=== PATIENT | female | born 1945 | race American Indian/Alaskan Native ===

== ENCOUNTER 2020-07-26 11:13 | Day surgery (SDC) | payer MEDICARE, OTHER ==
[2020-07-26] MEDS ORDERED: SODIUM CHLORIDE 0.9% 500 ML 500 ML IV SCH (12:00)
[2020-07-26 12:05] LABS: Hematocrit 35.6 % (30.3-42.9); Mean Corpuscular HGB Conc 34 % (30-34); Mean Corpuscular Volume 96 fl (79-97); Platelet Count 147 K/mm3 (140-440); Red Cell Distribution Width 16.2 % (13.2-15.2)
[2020-07-26 12:26] LABS: Calcium 9.1 mg/dL (8.4-10.2)
[2020-07-26 12:27] LABS: INR 0.98 (0.87-1.13)
[2020-07-26] MEDS ORDERED: LIDOCAINE (2%) 20 MG/1 ML VIAL 20 ML MDV INFILTRATI ONE (13:43)
[2020-07-26] MEDS ORDERED: HEPARIN/NS 5000 UNIT/500ML 1,000 ML IR ONE ×2 (13:43→14:40)
[2020-07-26] MEDS: MIDAZOLAM 2 MG/2 ML INJ ONE ×6 (14:11→16:21)
[2020-07-26] MEDS: fentaNYL 100 MCG/2 ML INJ ONE ×6 (14:11→16:21)
[2020-07-26] MEDS ORDERED: VERAPAMIL 5 MG/2 ML INJ ONE (14:26)
[2020-07-26] MEDS ORDERED: NITROGLYCERIN DRIP 0 MG/0 ML BOTTLE ONE (14:26)
[2020-07-26] MEDS ORDERED: SODIUM CHLORIDE 0.9% 1000 ML 1,000 ML ONE (14:26)
[2020-07-26] MEDS: HEPARIN 10,000 UNITS/10 ML VIAL ONE ×3 (14:51→16:22)
[2020-07-26] MEDS ORDERED: NITROGLYCERIN SYRINGE 6 ML ONE (16:06)
[2020-07-26] MEDS ORDERED: ceFAZolin/Water 2 GM/20 ML 2 GM/20 ML SYRINGE IV ONE (16:09)
--- NOTE | 2020-07-26 16:43 | Short Stay Summary ---
Short Stay Documentation Date of service: 07/26/20 Narrative H&P: See H&P - History H&P: obtained from office - Allergies and Medications Current Medications: Allergies No Known Allergies Allergy (Unverified 07/26/20 11:15) Home Medications Medication Instructions Recorded Confirmed Last Taken Type Clopidogrel [Plavix] 75 mg PO QDAY 07/26/20 07/26/20 07/25/20 History 75 mg Gabapentin [Neurontin] 300 mg PO Q8HR 07/26/20 07/26/20 07/25/20 History 3 tabs Lenalidomide [Revlimid] 25 cap PO DAILY 07/26/20 07/26/20 07/25/20 History 25 mg Rivaroxaban [Xarelto] 2.5 mg PO BID 07/26/20 07/26/20 07/25/20 History 2 tabs Semaglutide [Rybelsus] 7 mg PO DAILY 07/26/20 07/26/20 07/25/20 History 7 mg Simvastatin 40 mg PO DAILY 07/26/20 07/26/20 07/25/20 History 40 mg Active Medications Sodium Chloride (Nacl 0.9% 500 Ml) 500 mls @ 50 mls/hr IV DIRECT RAFAEL Last Admin: 07/26/20 14:11 Dose: 100 mls Documented by: - Brief post op/procedure progress note Date of procedure: 07/26/20 Pre-op diagnosis: Peripheral Vascular Disease with Right Lower Extremity Rest P ain Post-op diagnosis: same Procedure: 1. Ultrasound-Guided Access Left Common Femoral Artery 2. Diagnostic Aortogram (The Patient Had a Clinical Change) 3. Diagnostic Right Lower Extremity Angiogram (The Patient Had a Clinical Change) 4. Atherectomy with Angioplasty Of Right SFA and Popliteal Artery with 2.4/3.4 Jetstream Atherectomy Catheter and 5.0 x 200 Angiosculpt Balloon/5.0 x 250 IN.PACT Drug-Coated Balloon In the Popliteal Artery, and 6.0 x 200 Angiosculpt Balloon/6.0 x 150 IN.PACT Drug-Coated Balloon in the SFA 5. Angioplasty of Right Peroneal Artery with 3.0-2.5 x 210 NanoCross Balloon and 4.0 x 200 IN.PACT Drug-Coated Balloon 6. Closure of Left Femoral Arteriotomy with Pro-[place] Closure Device 7. Radiologic Supervision with Interpretation 8. Monitored Moderate Sedation (Total Anesthesia Time: 72 Minutes) Anesthesia: local, other (Monitored Moderate Sedation) Surgeon: EDWARD GE Estimated blood loss: minimal Pathology: none Condition: stable - Disposition Condition at discharge: Good Disposition: [id number] TO HOME OR SELFCARE Short Stay Discharge Plan Activity: other (No strenuous activity for 24 hours) Wound: remove dressing (Okay to remove the dressing in 24 hours), other (Okay to shower in 24-hour however do not soak the wound in water for 1 week.) Follow up with: EDWARD GE MD [Staff Physician] - 14 Days Prescriptions: Apixaban [Eliquis] 2.5 mg PO BID #180 tablet Aspirin EC [Halfprin EC] 81 mg PO QDAY #90 tablet. cilostazoL [Pletal] 100 mg PO BID #180 tablet Pantoprazole [Protonix] 40 mg PO QDAY #90 tablet
--- NOTE | 2020-07-26 16:51 | Operative Report ---
Operative Report Operative Report: Date of Procedure: 07/26/2020 Pre-operative Diagnosis: Peripheral Vascular Disease with Right Lower Extremity Rest Pain Post-operative Diagnosis: Same Procedure(s): 1. Ultrasound-Guided Access Left Common Femoral Artery 2. Diagnostic Aortogram (The Patient Had a Clinical Change) 3. Diagnostic Right Lower Extremity Angiogram (The Patient Had a Clinical Change) 4. Atherectomy with Angioplasty of Right SFA and Popliteal Artery with 2.4/3.4 Jetstream Atherectomy Catheter and 5.0 x 200 Angiosculpt Balloon/5.0 x 250 IN.PACT Drug-Coated Balloon In the Popliteal Artery, and 6.0 x 200 Angiosculpt Balloon/6.0 x 150 IN.PACT Drug-Coated Balloon in the SFA 5. Angioplasty of Right Peroneal Artery with 3.0-2.5 x 210 NanoCross Balloon and 4.0 x 200 IN.PACT Drug-Coated Balloon 6. Closure of Left Femoral Arteriotomy with Pro-[place] Closure Device 7. Radiologic Supervision with Interpretation 8. Monitored Moderate Sedation (Total Anesthesia Time: 72 Minutes) Surgeon: Hong Arita M.D. Farmworker Cranberry: Giovanni Anesthesia: Local/Monitored Moderate Sedation Total Anesthesia Time: 72 Minutes EBL: Minimal Counts: Correct Complications: None Condition: Stable Specimen: None Indication: The patient is a 75-year-old female with a history of peripheral vascular disease who has had multiple interventions performed on her right lower extremity and presented to the office with complaints of rest pain that have been occurring for approximately 1 week. Her ultrasound demonstrated diminished flow in the tibial vessels with likely associated occlusive disease in the femoral-popliteal segments. She was set up for a diagnostic angiogram with possible intervention. She was given the risk, benefits, and alternative procedures and consented to the procedure. Angiographic Findings: The diagnostic aortogram revealed that the aorta was patent without evidence of aneurysmal dilatation or flow-limiting stenosis. Bilateral common iliac arteries were patent without evidence of aneurysmal dilatation or flow-limiting stenosis. The diagnostic right lower extremity angiogram revealed that the external iliac artery and hypogastric artery were patent without evidence of flow-limiting stenosis. The common femoral artery and profunda were patent without evidence of flow-limiting stenosis. The SFA was diffusely diseased with approximately 70% stenosis in the proximal SFA and diffuse stenosis with segmental occlusions throughout the mid and distal SFA. The proximal popliteal artery has several stenotic areas ranging from 50 to 75% with multiple segments of occlusion in the above-knee segment and complete occlusion of the below-knee segment. The anterior tibial artery as well as the dorsalis pedis artery were occluded throughout their course. There was no reconstitution of flow noted within the peroneal artery and the posterior tibial artery was occluded at its origin and filled in the mid calf through collaterals from the floating popliteal artery segments. After intervention the SFA and popliteal artery were both patent with less than 15% residual stenosis. The tibioperoneal trunk was patent with less than 15% residual stenosis. The peroneal artery was patent with approximately 20% residual stenosis in the proximal segment and less than 15% residual stenosis throughout the remainder of the artery. The peroneal artery provided collateral flow to the posterior tibial artery at the ankle which is the dominant artery into the foot. Description of Procedure: The patient was brought to the Power Supply Engineer and laid in supine position. After a timeout was performed her left groin was prepped and draped in normal sterile fashion. Ultrasound was used to identify the left common femoral artery and confirm patency. Once patency was confirmed the overlying skin and soft tissue was anesthetized with lidocaine. An 11 blade was used to make a small stab incision and then a curved hemostat was used with ultrasound guidance to bluntly dissect down to the anterior surface of the left common femoral artery. A 21- gauge micropuncture needle was used with ultrasound guidance to enter the left common femoral artery and a 0.018 micropuncture wire was advanced into the artery. The micropuncture needle was removed and a micropuncture sheath was placed by Seldinger technique. The wire and inner cannula were removed and a 0.035 Bentson wire was advanced to the aorta. The micropuncture catheter was then removed and a 5 [place] sheath was placed by Seldinger technique. An Omni Flush catheter was advanced into the aorta and after removing the Bentson wire a diagnostic aortogram was performed to previously described findings. The Bentson wire was reinserted and the wire and Omni Flush catheter were used to advance up and over the bifurcation and a right lower extremity angiogram was performed with the previously described findings. The Bentson wire was advanced into the mid SFA and after removing the 5 Gambian sheath a 7 Gambian 45 cm destination sheath was placed by Seldinger technique. At this point the patient was systemically heparinized with 5000 units of heparin IV and this was redosed with 1000 units of heparin IV every 45 minutes into the completion of the case. I then used a Navicross catheter and 0.018 V18 Wire to traverse the areas of stenosis and occlusions and reenter into the peroneal artery which was confirmed by angiogram. I then inserted a 0.014 Thruway Wire and performed atherectomy of the SFA and popliteal artery using a 2.4/3.4 Jetstream Atherectomy Catheter with both blades down and blades up. After performing atherectomy I performed angioplasty of the entire popliteal artery using a 5.0 x 200 Angiosculpt Balloon in the SFA using a 6.0 x 200 Angiosculpt Balloon. I then performed angioplasty of the popliteal artery using a 5.0 x 250 IN.PACT Drug-Coated Balloon followed by angioplasty of the SFA using two 6.0 x 150 IN.PACT Drug-Coated Balloons with a result of less than 15% residual stenosis throughout both arteries. I follow this with angioplasty of the peroneal artery with a 3.0-2.5 x 210 NanoCross Balloon and follow this with angioplasty of the artery with a 4.0 x 200 IN.PACT Drug-Coated Balloon resulted in a short segment with a residual of 20% stenosis however the remainder of the artery had less than 15% residual stenosis. At this point I exchanged the wire for a Bentson wire and then pulled the sheath back into the left external iliac artery. I then advanced the wire into the aorta and after removing the sheath used a Pro-glide closure device to close the left femoral arteriotomy. A sterile dressing was then applied to the entry site and the patient was transported to the recovery area in stable condition.
[2020-07-26] MEDS ORDERED: APIXABAN 5 MG TAB ONE (17:22)
[2020-07-26 17:47] VITALS: BP 169/67
[2020-07-26] MEDS ORDERED: APIXABAN 2.5 MG TAB PO ONE (17:51)
== END 2020-07-26 11:14 | disposition home or self-care (01) ==
LOC: CATHLABREC 11:13
PROVIDERS: ATTEND Surgery Vascular Surgery
DX: I70.221 Atherosclerosis of native arteries of extremities with rest pain, right leg (principal); E11.42 Type 2 diabetes mellitus with diabetic polyneuropathy; E11.65 Type 2 diabetes mellitus with hyperglycemia; Z79.899 Other long term (current) drug therapy; Z79.82 Long term (current) use of aspirin; Z98.890 Other specified postprocedural states; Z85.3 Personal history of malignant neoplasm of breast; Z83.3 Family history of diabetes mellitus; Z82.49 Family history of ischemic heart disease and other diseases of the circulatory system
CPT/HCPCS: 36415; 37225; 37228; 75625; 75710; 76937; 80048; 85027; 85610; 99156; 99157; C1724; C1725; C1760; C1769; C1887; C2623; J0690; J1644; J2250; J3010; J7030; J7040; Q9967

== ENCOUNTER 2021-04-14 13:32 | Inpatient (IN) | payer MEDICARE, OTHER ==
[2021-04-14 15:55] LABS: Basophils % (Auto) 1.1 % (0.0-1.8); Eosinophils # (Auto) 0.2 K/mm3 (0.0-0.4); Eosinophils % (Auto) 6.9 % (0.0-4.3); Hemoglobin 12.3 gm/dl (10.1-14.3); Lymphocytes # (Auto) 1.2 K/mm3 (1.2-5.4); Lymphocytes % (Auto) 44.7 % (13.4-35.0); Mean Corpuscular HGB Conc 33 % (30-34); Mean Corpuscular Volume 96 fl (79-97); Monocytes # (Auto) 0.3 K/mm3 (0.0-0.8); Monocytes % (Auto) 12.3 % (0.0-7.3); Platelet Count 174 K/mm3 (140-440); Red Blood Count 3.86 M/mm3 (3.65-5.03); Red Cell Distribution Width 17.7 % (13.2-15.2)
[2021-04-14 16:03] LABS: INR 0.94 (0.87-1.13)
[2021-04-14 16:16] LABS: Alanine Aminotransferase 18 units/L (7-56); BUN/Creatinine Ratio 8; Blood Urea Nitrogen 8 mg/dL (7-17); Calcium 9.6 mg/dL (8.4-10.2); Hemolysis Index 5
--- NOTE | 2021-04-14 17:11 | Consultation ---
History of Present Illness - Reason for Consult Consult date: 04/14/21 Right leg pain - History of Present Illness Patient with a history of peripheral vascular disease who is undergone multiple repeat revascularization procedures of her right leg most recently at this institution on 07/26/2020. At that time, the patient was placed on anticoagulation secondary to recurrent thrombotic arterial events. Per patient, she is stopped taking all of her anticoagulation except her Eliquis which she takes only 1 time a day. I the patient began to experience right leg pain that has worsened since Saturday. She presented to an outside physician and underwent an arterial duplex which demonstrates occlusion of the distal SFA with preserved posterior tibial flow. On examination, the patient's leg is swollen. Motor and sensation are intact. She does not appear to be in severe pain. The foot is mildly cooler than her left foot. I the patient states that she has not been hanging her leg off the bed rather she has been elevating her leg to decrease the swelling. Spoke with the outside physician regarding her ultrasound who confirmed that she had SFA occlusion. Past History Past Medical History: PVD Past Surgical History: Other (Multiple endovascular procedures involving her right leg) Medications and Allergies Allergies Allergy/AdvReac Type Severity Reaction Status Date / Time No Known Allergies Allergy Unverified 04/14/21 13:46 Home Medications Medication Instructions Recorded Confirmed Last Taken Type Apixaban [Eliquis] 2.5 mg PO BID #180 tablet 07/26/20 Unknown Rx Aspirin EC [Halfprin EC] 81 mg PO QDAY #90 tablet. 07/26/20 Unknown Rx Gabapentin 300 mg PO Q8HR 07/26/20 07/26/20 07/25/20 History 3 tabs Lenalidomide [Revlimid] 25 cap PO DAILY 07/26/20 07/26/20 07/25/20 History 25 mg Pantoprazole [Protonix] 40 mg PO QDAY #90 tablet 07/26/20 Unknown Rx Semaglutide [Rybelsus] 7 mg PO DAILY 07/26/20 07/26/20 07/25/20 History 7 mg Simvastatin 40 mg PO DAILY 07/26/20 07/26/20 07/25/20 History 40 mg cilostazoL [Pletal] 100 mg PO BID #180 tablet 07/26/20 Unknown Rx Active Meds: Active Medications Heparin Sodium/Sodium Chloride (Heparin/ 0.45% Nacl-25,000 Unit/500 Ml) 25,000 unit in 500 mls @ 22.099 mls/hr IV TITR RAFAEL; Protocol Review of Systems All systems: negative Exam - Constitutional Vitals: Temp Pulse Resp BP Pulse Ox 98.3 F 58 L 18 133/66 99 04/14/21 13:44 04/14/21 13:44 04/14/21 13:44 04/14/21 13:44 04/14/21 13:44 General appearance: Present: no acute distress - EENT Eyes: Present: EOM intact ENT: hearing intact - Neck Neck: Present: supple, normal ROM - Respiratory Respiratory effort: normal - Extremities Extremities: abnormal (Per HPI) - Rectal Rectal Exam: deferred - Psychiatric Psychiatric: cooperative Results - Labs CBC & Chem 7: 04/14/21 15:01 04/14/21 15:01 Labs: Abnormal lab results 04/14/21 Range/Units 15:01 WBC 2.8 L (4.5-11.0) K/mm3 RDW 17.7 H (13.2-15.2) % Lymph % (Auto) 44.7 H (13.4-35.0) % [place] % (Auto) 12.3 H (0.0-7.3) % Eos % (Auto) 6.9 H (0.0-4.3) % Seg Neutrophils % 35.0 L (40.0-70.0) % Seg Neutrophils # 1.0 L (1.8-7.7) K/mm3 Assessment and Plan Venous ultrasound was ordered by the ER physician. Discussed with the trade economist to add a greater saphenous vein mapping at that time as the patient may require a fem-tib bypass with in situ greater saphenous vein given her inability to maintain the patency of her [place] arterial vessels despite repeated interventions. A CTA of the abdomen and pelvis with runoff was also ordered. The patient was placed on a heparin drip. The patient appears to have rest pain.
--- NOTE | 2021-04-14 17:34 | Emergency Department Report ---
ED General Adult HPI - General Chief complaint: Medical Clearance Stated complaint: BLOOD CLOT RT LEG Time Seen by Provider: 04/14/21 14:42 Source: patient Mode of arrival: Ambulatory Limitations: No Limitations - History of Present Illness Initial comments: pt reports she was sent from her primary care, for blood clot in right lower leg. obvious reddness and pain -: days(s) Location: lower extremity Radiation: non-radiation Severity scale (0 -10): 5 Quality: aching Worsens with: none Associated Symptoms: denies other symptoms - Related Data Home Medications Medication Instructions Recorded Confirmed Last Taken Gabapentin 300 mg PO Q8HR 07/26/20 07/26/20 07/25/20 3 tabs Lenalidomide [Revlimid] 25 cap PO DAILY 07/26/20 07/26/20 07/25/20 25 mg Semaglutide [Rybelsus] 7 mg PO DAILY 07/26/20 07/26/20 07/25/20 7 mg Simvastatin 40 mg PO DAILY 07/26/20 07/26/20 07/25/20 40 mg Previous Rx's Medication Instructions Recorded Last Taken Type Apixaban [Eliquis] 2.5 mg PO BID #180 tablet 07/26/20 Unknown Rx Aspirin EC [Halfprin EC] 81 mg PO QDAY #90 tablet. 07/26/20 Unknown Rx Pantoprazole [Protonix] 40 mg PO QDAY #90 tablet 07/26/20 Unknown Rx cilostazoL [Pletal] 100 mg PO BID #180 tablet 07/26/20 Unknown Rx Allergies Allergy/AdvReac Type Severity Reaction Status Date / Time No Known Allergies Allergy Unverified 04/14/21 13:46 ED Review of Systems ROS: Stated complaint: BLOOD CLOT RT LEG Other details as noted in HPI Constitutional: denies: chills, fever Eyes: denies: eye pain, eye discharge, vision change ENT: denies: ear pain, throat pain Respiratory: denies: cough, shortness of breath, wheezing Cardiovascular: denies: chest pain, palpitations Endocrine: no symptoms reported Gastrointestinal: denies: abdominal pain, nausea, diarrhea Genitourinary: denies: urgency, dysuria, discharge Musculoskeletal: denies: back pain, joint swelling, arthralgia Skin: denies: rash, lesions Neurological: denies: headache, weakness, paresthesias Psychiatric: denies: anxiety, depression Hematological/Lymphatic: denies: easy bleeding, easy bruising ED Past Medical Hx - Past Medical History Previous Medical History?: Yes Hx Diabetes: Yes Hx Liver Disease: No - Social History Smoking Status: Never Smoker - Medications Home Medications: Home Medications Medication Instructions Recorded Confirmed Last Taken Type Apixaban [Eliquis] 2.5 mg PO BID #180 tablet 07/26/20 Unknown Rx Aspirin EC [Halfprin EC] 81 mg PO QDAY #90 tablet. 07/26/20 Unknown Rx Gabapentin 300 mg PO Q8HR 07/26/20 07/26/20 07/25/20 History 3 tabs Lenalidomide [Revlimid] 25 cap PO DAILY 07/26/20 07/26/20 07/25/20 History 25 mg Pantoprazole [Protonix] 40 mg PO QDAY #90 tablet 07/26/20 Unknown Rx Semaglutide [Rybelsus] 7 mg PO DAILY 07/26/20 07/26/20 07/25/20 History 7 mg Simvastatin 40 mg PO DAILY 07/26/20 07/26/20 07/25/20 History 40 mg cilostazoL [Pletal] 100 mg PO BID #180 tablet 07/26/20 Unknown Rx ED Physical Exam - General Limitations: No Limitations General appearance: alert, in no apparent distress - Head Head exam: Present: atraumatic, normocephalic - Eye Eye exam: Present: normal appearance - ENT ENT exam: Present: mucous membranes moist - Neck Neck exam: Present: normal inspection - Respiratory Respiratory exam: Present: normal lung sounds bilaterally. Absent: respiratory distress - Cardiovascular Cardiovascular Exam: Present: regular rate, normal rhythm. Absent: systolic murmur, diastolic murmur, rubs, gallop - GI/Abdominal GI/Abdominal exam: Present: soft, normal bowel sounds - Extremities Exam Extremities exam: Present: normal inspection - Expanded Lower Extremity Exam Right Lower Leg exam: Present: tenderness, swelling, erythema - Back Exam Back exam: Present: normal inspection - Neurological Exam Neurological exam: Present: alert, oriented X3 - Psychiatric Psychiatric exam: Present: normal affect, normal mood - Skin Skin exam: Present: warm, dry, intact, normal color. Absent: rash ED Course Vital Signs 04/14/21 13:44 Temperature 98.3 F Pulse Rate 58 L Respiratory 18 Rate Blood Pressure 133/66 O2 Sat by Pulse 99 Oximetry - Reevaluation(s) Reevaluation #1: 04/14/21 17:33 DR naina dotson , wanted her to be admitted to medicine , he started her on hep drip for Right SFA occlusion ED Medical Decision Making - Lab Data Result diagrams: 04/14/21 15:01 04/14/21 15:01 Critical care attestation.: If time is entered above; I have spent that time in minutes in the direct care of this critically ill patient, excluding procedure time. ED Disposition Clinical Impression: Ischemia of right lower extremity Disposition: ADMITTED INPATIENT Is pt being admited?: Yes Does the pt Need Aspirin: No Condition: Stable Referrals: PRIMARY CARE, [Primary Care Provider] - 3-5 Days
--- NOTE | 2021-04-14 17:47 | Event Note ---
Date: 04/14/21 Reviewed CTA images with shearer helper in real-time while patient was in the room and examination being performed. The patient has no DVT. The patient does have preserved tibial arterial flow in both the posterior tibial artery and peroneal as well as preserved popliteal artery flow. There appears to be chronic possibly subacute occlusion of her distal SFA with collateral flow. Patient will need CTA for further delineation and to evaluate treatment options. Her greater saphenous vein appears to be patent from its origin to below the knee. Patient not in any significant pain or discomfort.
--- NOTE | 2021-04-14 19:07 | Cat Scan Report ---
CTA ABDOMEN, PELVIS, AND LOWER EXTREMITIES WITH CONTRAST INDICATION: SFA occlusion. TECHNIQUE: Axial CT images were obtained through the abdomen, pelvis and lower extremities after injection of 10 0 cc Omnipaque 350 IV contrast. 3 plane MIP reconstructions were produced. All CT scans at this [facility] are performed using CT dose reduction for ALARA by means of automated exposure control. COMPARISON: None available. FINDINGS: CTA ABDOMEN: Abdominal Aorta: There is moderate generalized nonobstructive atherosclerosis. No other significant a bnormality. Celiac Artery: No significant abnormality. Superior Mesenteric Artery: No significant abnormality. Right Renal Artery: No significant abnormality. Left Renal Artery: No significant abnormality. Inferior Mesenteric Artery: No significant abnormality. CTA PELVIS: RIGHT: - Common Iliac Artery: There is mild nonobstructive atherosclerosis without other significant abnorma lities. - Internal Iliac Artery: There is mild nonobstructive atherosclerosis without other significant abnor malities. - External Iliac Artery: No significant abnormality. LEFT: - Common Iliac Artery: There is mild nonobstructive atherosclerosis without other significant abnorma lities. - Internal Iliac Artery: There is mild nonobstructive atherosclerosis without other significant abnor malities. - External Iliac Artery: No significant abnormality. CTA LOWER EXTREMITIES: RIGHT LOWER EXTREMITY: - Common Femoral Artery: No significant abnormality. - Superficial Femoral Artery: Short segment severe stenosis is seen along the proximal third of the S FA on image 400 of series 2. There is occlusion of the SFA along the distal third of the thigh withou t distal reconstitution of flow. - Profunda Femoral Artery: No significant abnormality. - Popliteal Artery: Patent and supplied by collaterals at its origin with subsequent occlusion along the middle third of its course without distal reconstitution of flow. - Anterior Tibial Artery: Occluded. - Tibioperoneal Trunk: Occluded. - Posterior Tibial Artery: Occluded at its origin with reconstitution of flow via collaterals along t he proximal/middle third of the leg. The vessel remains patent and normal in caliber to the foot. - Peroneal Artery: Mostly occluded with reconstitution of flow just above the ankle via collaterals. - Ankle runoff: Primarily 1 vessel. LEFT LOWER EXTREMITY: - Common Femoral Artery: No significant abnormality. - Superficial Femoral Artery: There is generalized mild nonobstructive atherosclerosis without other significant abnormalities. - Profunda Femoral Artery: No significant abnormality. - Popliteal Artery: There is generalized mild nonobstructive atherosclerosis without other significan t abnormalities. - Anterior Tibial Artery: Briefly patent and normal in caliber at its origin with occlusion shortly t hereafter without distal reconstitution of flow. - Tibioperoneal Trunk: No significant abnormality. - Posterior Tibial Artery: No significant abnormality. - Peroneal Artery: Mostly occluded with reconstitution of flow via collaterals just above the ankle. - Ankle runoff: Primarily 1 vessel. NONTARGET STRUCTURES: CHEST: No significant abnormality. ABDOMEN:No significant abnormality. PELVIS:No significant abnormality. LOWER EXTREMITIES:No significant abnormality. SKELETAL: No acute findings. There are moderate degenerative changes of the spine and mild degenerati ve changes of the pelvis. ADDITIONAL FINDINGS: None. IMPRESSION: 1. Moderate aortic and mild iliac atherosclerosis without significant obstruction. No other significa nt vascular abnormality in the abdomen/pelvis. 2. Severe right lower extremity peripheral vascular disease with occlusion of the superficial femoral , popliteal, anterior tibial, posterior tibial and peroneal arteries as well as the tibioperoneal alka nk. There is primarily single vessel runoff to the right foot as detailed above. 3. Severe left lower extremity peripheral vascular disease with occlusion of the anterior tibial and peroneal arteries and primarily single vessel runoff to the left foot as detailed above. Signer Name: Luis Alberto Stallworth MD Signed: 04/14/2021 7:03 PM Workstation Name: [id number]
[2021-04-14] MEDS ORDERED: ACETAMINOPHEN 325 MG TAB PO PRN (20:06)
[2021-04-14] MEDS ORDERED: ONDANSETRON 4 MG/2 ML INJ IV PRN (20:06)
--- NOTE | 2021-04-14 20:12 | History and Physical Report ---
History of Present Illness Date of examination: 04/14/21 Date of admission: 04/14/2021 Chief complaint: Right lower extremity swelling and pain History of present illness: Patient with a history of peripheral vascular disease who has undergone multiple repeat revascularization procedures of her right leg most recently at this institution on 07/26/2020. At that time, the patient was placed on anticoagulation secondary to recurrent thrombotic arterial events. Per patient, she has stopped taking all her anticoagulation meds except her Eliquis which she takes only 1 time a day. The patient began to experience right leg pain that has worsened since Saturday. She presented to an outside physician and underwent an arterial duplex which demonstrates occlusion of the distal SFA with preserved posterior tibial flow. On examination, the patient's leg is swollen. Motor and sensation are intact. She does not appear to be in severe pain. The Right foot is mildly cooler than her left foot. Patient states that she has not been hanging her leg off the bed rather she has been elevating her leg to decrease the swelling. Dr Verm[facility] who confirmed that she had SFA occlusion. - Past Medical History --Previous Medical History?: Yes --Diabetes: Yes --Liver Disease: No -Surgical history --multiple right lower extremity revascularization procedures - Social History --Smoking Status: Never Smoker - Family history --HTN -Review of Systems --ROS: Stated complaint: BLOOD CLOT RT LEG Other details as noted in HPI Constitutional: denies: chills, fever Eyes: denies: eye pain, eye discharge, vision change ENT: denies: ear pain, throat pain Respiratory: denies: cough, shortness of breath, wheezing Cardiovascular: denies: chest pain, palpitations Endocrine: no symptoms reported Gastrointestinal: denies: abdominal pain, nausea, diarrhea Genitourinary: denies: urgency, dysuria, discharge Musculoskeletal: Right lower extremity swollen and tender below the inguinal region Skin: denies: rash, lesions Neurological: denies: headache, weakness, paresthesias Psychiatric: denies: anxiety, depression Hematological/Lymphatic: denies: easy bleeding, easy bruising Past History Past Medical History: PVD Past Surgical History: Other (Multiple endovascular procedures involving her right leg) Medications and Allergies Allergies Allergy/AdvReac Type Severity Reaction Status Date / Time No Known Allergies Allergy Unverified 04/14/21 13:46 Home Medications Medication Instructions Recorded Confirmed Last Taken Type Apixaban [Eliquis] 2.5 mg PO BID #180 tablet 07/26/20 Unknown Rx Pantoprazole [Protonix] 40 mg PO QDAY #90 tablet 07/26/20 Unknown Rx RX: Aspirin EC [Halfprin EC] 81 mg PO QDAY #90 tablet. 07/26/20 Unknown Rx RX: Gabapentin 300 mg PO Q8HR 07/26/20 07/26/20 07/25/20 History 3 tabs RX: Lenalidomide [Revlimid] 25 cap PO DAILY 07/26/20 07/26/20 07/25/20 History 25 mg RX: Semaglutide [Rybelsus] 7 mg PO DAILY 07/26/20 07/26/20 07/25/20 History 7 mg RX: Simvastatin 40 mg PO DAILY 07/26/20 07/26/20 07/25/20 History 40 mg cilostazoL [Pletal] 100 mg PO BID #180 tablet 07/26/20 Unknown Rx Active Meds: Active Medications Heparin Sodium/Sodium Chloride (Heparin/ 0.45% Nacl-25,000 Unit/500 Ml) 25,000 unit in 500 mls @ 21 mls/hr IV TITR RAFAEL; Protocol Exam - Constitutional Vitals: Temp Pulse Resp BP Pulse Ox 98.3 F 58 L 14 134/57 96 04/14/21 13:44 04/14/21 18:02 04/14/21 18:02 04/14/21 18:02 04/14/21 18:02 General appearance: Present: mild distress, well-nourished - EENT Eyes: Present: PERRL ENT: hearing intact, clear oral mucosa - Neck Neck: Present: supple, normal ROM - Respiratory Respiratory effort: normal Respiratory: bilateral: CTA - Cardiovascular Heart rate: 78 Rhythm: regular Heart Sounds: Present: S1 & S2. Absent: rub, click - Extremities Extremities: No edema, abnormal (Right lower extremity swollen below the inguinal region and tender. Also right foot is cold to touch) Extremity abnormal: pulses diminished (Right lower extremity) Peripheral Pulses: abnormal - Abdominal General gastrointestinal: Present: soft, non-tender, non-distended, normal bowel sounds Female genitourinary: Present: normal - Rectal Rectal Exam: deferred - Integumentary Integumentary: Present: clear, warm, dry - Musculoskeletal Musculoskeletal: gait normal, strength equal bilaterally - Psychiatric Psychiatric: appropriate mood/affect, intact judgment & insight - Neurologic Neurologic: CNII-XII intact, moves all extremities - Allied Health Allied health notes reviewed: nursing, case management Results - Labs CBC & Chem 7: 04/15/21 04:48 04/15/21 04:48 Labs: Laboratory Last Values WBC 2.8 K/mm3 (4.5-11.0) L 04/14/21 15:01 RBC 3.86 M/mm3 (3.65-5.03) 04/14/21 15:01 Hgb 12.3 gm/dl (10.1-14.3) 04/14/21 15:01 Hct 37.0 % (30.3-42.9) 04/14/21 15:01 MCV 96 fl (79-97) 04/14/21 15:01 MCH 32 pg (28-32) 04/14/21 15:01 MCHC 33 % (30-34) 04/14/21 15:01 RDW 17.7 % (13.2-15.2) H 04/14/21 15:01 Plt Count 174 K/mm3 (140-440) 04/14/21 15:01 Lymph % (Auto) 44.7 % (13.4-35.0) H 04/14/21 15:01 [place] % (Auto) 12.3 % (0.0-7.3) H 04/14/21 15:01 Eos % (Auto) 6.9 % (0.0-4.3) H 04/14/21 15:01 Baso % (Auto) 1.1 % (0.0-1.8) 04/14/21 15:01 Lymph # (Auto) 1.2 K/mm3 (1.2-5.4) 04/14/21 15:01 [place] # (Auto) 0.3 K/mm3 (0.0-0.8) 04/14/21 15:01 Eos # (Auto) 0.2 K/mm3 (0.0-0.4) 04/14/21 15:01 Baso # (Auto) 0.0 K/mm3 (0.0-0.1) 04/14/21 15:01 Seg Neutrophils % 35.0 % (40.0-70.0) L 04/14/21 15:01 Seg Neutrophils # 1.0 K/mm3 (1.8-7.7) L 04/14/21 15:01 PT 13.6 Sec. (12.2-14.9) 04/14/21 15:01 INR 0.94 (0.87-1.13) 04/14/21 15:01 APTT 30.0 Sec. (24.2-36.6) 04/14/21 15:01 Sodium 144 mmol/L (137-145) 04/14/21 15:01 Potassium 4.2 mmol/L (3.6-5.0) 04/14/21 15:01 Chloride 106.6 mmol/L (98-107) 04/14/21 15:01 Carbon Dioxide 26 mmol/L (22-30) 04/14/21 15:01 Anion Gap 16 mmol/L 04/14/21 15:01 BUN 8 mg/dL (7-17) 04/14/21 15:01 Creatinine 1.0 mg/dL (0.6-1.2) 04/14/21 15:01 Estimated GFR > 60 ml/min 04/14/21 15:01 BUN/Creatinine Ratio 8 % 04/14/21 15:01 Glucose 82 mg/dL (65-100) 04/14/21 15:01 Calcium 9.6 mg/dL (8.4-10.2) 04/14/21 15:01 Total Bilirubin 0.30 mg/dL (0.1-1.2) 04/14/21 15:01 AST 16 units/L (5-40) 04/14/21 15:01 ALT 18 units/L (7-56) 04/14/21 15:01 Alkaline Phosphatase 77 units/L (35-129) 04/14/21 15:01 C-Reactive Protein 0.10 mg/dL (0.00-1.30) 04/14/21 15:01 Total Protein 6.9 g/dL (6.3-8.2) 04/14/21 15:01 Albumin 4.0 g/dL (3.9-5) 04/14/21 15:01 Albumin/Globulin Ratio 1.4 % 04/14/21 15:01 - Imaging and Cardiology Imaging and Cardiology: Abdomen CTA Moderate aortic and mild iliac atherosclerosis without significant obstruction No other significant vascular abnormality in the abdomen/pelvis Severe right lower extremity peripheral vascular disease with occlusion of the superficial femoral, popliteal, anterior tibial, posterior tibial and peroneal arteries as well as the tibioperoneal trunk. There is family single-vessel runoff to the right foot as detailed above. Severe left lower extremity peripheral vascular disease with occlusion of the anterior tibial and peroneal arteries and primarily single-vessel runoff of the left foot as detailed above. Assessment and Plan Advance Directives: Yes (Full code) VTE prophylaxis?: Chemical Plan of care discussed with patient/family: Yes - Patient Problems (1) Ischemia of right lower extremity Current Visit: Yes Status: Acute Plan to address problem: Patient seen by Dr. 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 Continue statins (6) DVT prophylaxis Current Visit: Yes Status: Acute Plan to address problem: Patient on heparin drip and GI prophylaxis (7) Advance care planning Current Visit: Yes Status: Acute (8) Advance care planning Current Visit: Yes Status: Acute Plan to address problem: Disease education conducted, care plan discussed, diagnosis discussed, prognosis discussed. Patient is full code. Patient acknowledges understanding and agreement with care plan.
[2021-04-14] MEDS ORDERED: SODIUM CHLORIDE 0.9% 1000 ML 1,000 ML IV SCH (20:15)
[2021-04-14] MEDS: HEPARIN/ 0.45% NACL DRIP 25,000 UNIT/500 ML BAG IV SCH (22:47)
[2021-04-15] MEDS: oxyCODONE /ACETAMINOPHEN 5-325MG TAB PO PRN ×2 (00:35→06:11)
[2021-04-15 05:40] LABS: Hematocrit 34.2 % (30.3-42.9); Mean Corpuscular HGB Conc 32 % (30-34); Mean Corpuscular Volume 97 fl (79-97); Platelet Count 138 K/mm3 (140-440); Red Blood Count 3.54 M/mm3 (3.65-5.03); Red Cell Distribution Width 17.6 % (13.2-15.2)
[2021-04-15 05:43] LABS: Alanine Aminotransferase 15 units/L (7-56); Albumin 3.3 g/dL (3.9-5); BUN/Creatinine Ratio 9; Blood Urea Nitrogen 9 mg/dL (7-17); Calcium 8.3 mg/dL (8.4-10.2); Hemolysis Index 2
[2021-04-15 06:50] LABS: Basophils % (Manual) 0 % (0.0-1.8); Total Cells Counted 100
[2021-04-15 06:51] LABS: Anisocytosis 1+; Ovalocytes Few; Platelet Estimate Consistent w Auto; Poikilocytosis 1+; Schistocytes Rare; Tear Drop Cells Rare
--- NOTE | 2021-04-15 09:10 | Progress Note ---
Assessment and Plan Assessment and plan: #Right lower extremity ischemia CT angio abdominal/femoral aorta (04/14/2021) revealing right popliteal artery is patent and supplied by collaterals at its origin with subsequent occlusion along the middle third of its course without distal reconstitution of flow, occl uded right anterior tibial artery, occluded right tibioperoneal trunk, occluded right posterior tibial artery at its origin with reconstitution of flow via collaterals along the proximal/middle third of the leg, mostly occluded right peroneal artery with reconstitution of flow just above the ankle via collaterals, mostly occluded left peroneal artery with reconstitution of flow via collaterals just above the ankle. Vascular surgery consulted; appreciate recs Pending venous ultrasound with additional greater saphenous vein mapping Pending likely revascularization of right lower extremity with possible femoral-popliteal bypass versus catheterization and angioplasty Continue heparin drip Continue to monitor #PAD #Hyperlipidemia Continue home pravastatin 80 mg daily, cilostazol 100 mg twice daily, and aspirin 81 mg daily #Non-insulin dependent type II diabetes mellitus complicated by peripheral neuropathy - hemoglobin A1c: Unknown - current regimen: Moderate SSI and home gabapentin 300 mg every 8 hours - blood glucose goal 140-180 while inpatient - continue to monitor #Advanced care planning -Disease education conducted, care plan discussed, diagnoses discussed, prognosis discussed, and patient acknowledges understanding with care plan -Time: +30 min Disposition Plan: Continue medical management Total Time Spent with Patient (Minutes): 45 minutes History Interval history: No acute events overnight. Hospitalist Physical - Constitutional Vitals: Temp Pulse Resp BP Pulse Ox 97.7 F 49 L 16 125/54 96 04/15/21 05:00 04/15/21 05:00 04/15/21 05:00 04/15/21 05:00 04/15/21 05:00 General appearance: Present: no acute distress, well-nourished - EENT Eyes: Present: PERRL, EOM intact ENT: hearing intact, clear oral mucosa, dentition normal - Neck Neck: Present: supple, normal ROM - Respiratory Respiratory effort: normal Respiratory: bilateral: CTA - Cardiovascular Rhythm: regular Heart Sounds: Present: S1 & S2 - Extremities Extremities: pulses intact, pulses symmetrical, normal color, Full ROM Extremity abnormal: cold (Right lower extremity is slightly cooler than left), tenderness (Tenderness of bilateral lower extremities from knees down to ankle) Peripheral Pulses: within normal limits - Abdominal General gastrointestinal: soft, non-tender, non-distended - Integumentary Integumentary: Present: clear, warm, dry - Psychiatric Psychiatric: appropriate mood/affect, memory intact, cooperative - Neurologic Neurologic: CNII-XII intact, moves all extremities - Allied Health Allied health notes reviewed: nursing Results - Labs CBC & Chem 7: 04/15/21 04:48 04/15/21 04:48 Labs: Laboratory Last Values WBC 2.3 K/mm3 (4.5-11.0) L 04/15/21 04:48 RBC 3.54 M/mm3 (3.65-5.03) L 04/15/21 04:48 Hgb 11.0 gm/dl (10.1-14.3) 04/15/21 04:48 Hct 34.2 % (30.3-42.9) 04/15/21 04:48 MCV 97 fl (79-97) 04/15/21 04:48 MCH 31 pg (28-32) 04/15/21 04:48 MCHC 32 % (30-34) 04/15/21 04:48 RDW 17.6 % (13.2-15.2) H 04/15/21 04:48 Plt Count 138 K/mm3 (140-440) L 04/15/21 04:48 Lymph % (Auto) 44.7 % (13.4-35.0) H 04/14/21 15:01 [place] % (Auto) 12.3 % (0.0-7.3) H 04/14/21 15:01 Eos % (Auto) 6.9 % (0.0-4.3) H 04/14/21 15:01 Baso % (Auto) 1.1 % (0.0-1.8) 04/14/21 15:01 Lymph # (Auto) 1.2 K/mm3 (1.2-5.4) 04/14/21 15:01 [place] # (Auto) 0.3 K/mm3 (0.0-0.8) 04/14/21 15:01 Eos # (Auto) 0.2 K/mm3 (0.0-0.4) 04/14/21 15:01 Baso # (Auto) 0.0 K/mm3 (0.0-0.1) 04/14/21 15:01 Add Manual Diff Complete 04/15/21 04:48 Total Counted 100 04/15/21 04:48 Seg Neutrophils % 35.0 % (40.0-70.0) L 04/14/21 15:01 Seg Neuts % (Manual) 33.0 % (40.0-70.0) L 04/15/21 04:48 Band Neutrophils % 0 % 04/15/21 04:48 Lymphocytes % (Manual) 35.0 % (13.4-35.0) 04/15/21 04:48 Reactive Lymphs % (Man) 0 % 04/15/21 04:48 Monocytes % (Manual) 14.0 % (0.0-7.3) H 04/15/21 04:48 Eosinophils % (Manual) 18.0 % (0.0-4.3) H 04/15/21 04:48 Basophils % (Manual) 0 % (0.0-1.8) 04/15/21 04:48 Metamyelocytes % 0 % 04/15/21 04:48 Myelocytes % 0 % 04/15/21 04:48 Promyelocytes % 0 % 04/15/21 04:48 Blast Cells % 0 % 04/15/21 04:48 Nucleated RBC % Not Reportable 04/15/21 04:48 Seg Neutrophils # 1.0 K/mm3 (1.8-7.7) L 04/14/21 15:01 Seg Neutrophils # Man 0.8 K/mm3 (1.8-7.7) L 04/15/21 04:48 Band Neutrophils # 0.0 K/mm3 04/15/21 04:48 Lymphocytes # (Manual) 0.8 K/mm3 (1.2-5.4) L 04/15/21 04:48 Abs React Lymphs (Man) 0.0 K/mm3 04/15/21 04:48 Monocytes # (Manual) 0.3 K/mm3 (0.0-0.8) 04/15/21 04:48 Eosinophils # (Manual) 0.4 K/mm3 (0.0-0.4) 04/15/21 04:48 Basophils # (Manual) 0.0 K/mm3 (0.0-0.1) 04/15/21 04:48 Metamyelocytes # 0.0 K/mm3 04/15/21 04:48 Myelocytes # 0.0 K/mm3 04/15/21 04:48 Promyelocytes # 0.0 K/mm3 04/15/21 04:48 Blast Cells # 0.0 K/mm3 04/15/21 04:48 WBC Morphology Not Reportable 04/15/21 04:48 Hypersegmented Neuts Not Reportable 04/15/21 04:48 Hyposegmented Neuts Not Reportable 04/15/21 04:48 Hypogranular Neuts Not Reportable 04/15/21 04:48 Smudge Cells Not Reportable 04/15/21 04:48 Toxic Granulation Not Reportable 04/15/21 04:48 Toxic Vacuolation Not Reportable 04/15/21 04:48 Dohle Bodies Not Reportable 04/15/21 04:48 Pelger-Huet Anomaly Not Reportable 04/15/21 04:48 Venus Rods Not Reportable 04/15/21 04:48 Platelet Estimate Consistent w auto 04/15/21 04:48 Clumped Platelets Not Reportable 04/15/21 04:48 Plt Clumps, EDTA Not Reportable 04/15/21 04:48 Large Platelets Not Reportable 04/15/21 04:48 Giant Platelets Not Reportable 04/15/21 04:48 Platelet Satelliting Not Reportable 04/15/21 04:48 Plt Morphology Comment Not Reportable 04/15/21 04:48 RBC Morphology Not Reportable 04/15/21 04:48 Dimorphic RBCs Not Reportable 04/15/21 04:48 Polychromasia Not Reportable 04/15/21 04:48 Hypochromasia Not Reportable 04/15/21 04:48 Poikilocytosis 1+ 04/15/21 04:48 Anisocytosis 1+ 04/15/21 04:48 Microcytosis Not Reportable 04/15/21 04:48 Macrocytosis Not Reportable 04/15/21 04:48 Spherocytes Not Reportable 04/15/21 04:48 Pappenheimer Bodies Not Reportable 04/15/21 04:48 Sickle Cells Not Reportable 04/15/21 04:48 Target Cells Not Reportable 04/15/21 04:48 Tear Drop Cells Rare 04/15/21 04:48 Ovalocytes Few 04/15/21 04:48 Helmet Cells Not Reportable 04/15/21 04:48 [place] Bodies Not Reportable 04/15/21 04:48 [place] Rings Not Reportable 04/15/21 04:48 Charline Cells Not Reportable 04/15/21 04:48 Bite Cells Not Reportable 04/15/21 04:48 Crenated Cell Not Reportable 04/15/21 04:48 Elliptocytes Few 04/15/21 04:48 Acanthocytes (Spur) Few 04/15/21 04:48 Rouleaux Not Reportable 04/15/21 04:48 Hemoglobin C Crystals Not Reportable 04/15/21 04:48 Schistocytes Rare 04/15/21 04:48 Malaria parasites Not Reportable 04/15/21 04:48 Wily Bodies Not Reportable 04/15/21 04:48 Hem Pathologist Commnt No 04/15/21 04:48 PT 13.6 Sec. (12.2-14.9) 04/14/21 15:01 INR 0.94 (0.87-1.13) 04/14/21 15:01 APTT 30.0 Sec. (24.2-36.6) 04/14/21 15:01 Heparin Anti-Xa Level 0.72 U.I./ml (0.3-0.7) H 04/15/21 04:48 Sodium 143 mmol/L (137-145) 04/15/21 04:48 Potassium 4.0 mmol/L (3.6-5.0) 04/15/21 04:48 Chloride 108.5 mmol/L (98-107) H 04/15/21 04:48 Carbon Dioxide 25 mmol/L (22-30) 04/15/21 04:48 Anion Gap 14 mmol/L 04/15/21 04:48 BUN 9 mg/dL (7-17) 04/15/21 04:48 Creatinine 1.0 mg/dL (0.6-1.2) 04/15/21 04:48 Estimated GFR > 60 ml/min 04/15/21 04:48 BUN/Creatinine Ratio 9 % 04/15/21 04:48 Glucose 112 mg/dL (65-100) H 04/15/21 04:48 POC Glucose 169 mg/dL (70-105) H 04/15/21 07:42 Calcium 8.3 mg/dL (8.4-10.2) L 04/15/21 04:48 Total Bilirubin 0.30 mg/dL (0.1-1.2) 04/15/21 04:48 AST 15 units/L (5-40) 04/15/21 04:48 ALT 15 units/L (7-56) 04/15/21 04:48 Alkaline Phosphatase 61 units/L (35-129) 04/15/21 04:48 C-Reactive Protein 0.10 mg/dL (0.00-1.30) 04/14/21 15:01 Total Protein 5.3 g/dL (6.3-8.2) L D 04/15/21 04:48 Albumin 3.3 g/dL (3.9-5) L 04/15/21 04:48 Albumin/Globulin Ratio 1.7 % 04/15/21 04:48 Wells/IV: Voiding Method Toilet Active Medications - Current Medications Current Medications: Generic Name Dose Route Start Last Admin Trade Name Freq PRN Reason Stop Dose Admin Acetaminophen 650 mg 04/14/21 20:06 Acetaminophen 325 Mg Tab PO Q4H PRN Pain MILD(1-3)/Fever >100.5/MTZ Aspirin 81 mg 04/15/21 10:00 Aspirin Ec 81 Mg Tab PO QDAY [facility] Cilostazol 100 mg 04/15/21 10:00 Cilostazol 100 Mg Tab PO BID [facility] Gabapentin 300 mg 04/15/21 08:00 Gabapentin 300 Mg Cap PO Q8HR [facility] Heparin Sodium/Sodium Chloride 25,000 unit in 500 mls @ 21 mls/hr 04/14/21 17:00 04/15/21 06:09 Heparin/ 0.45% Nacl-25,000 Unit/500 Ml IV 1,000 units/hr TITR RAFAEL 20 mls/hr Titration Protocol 1,050 UNITS/HR Sodium Chloride 1,000 mls @ 100 mls/hr 04/14/21 20:15 04/14/21 22:43 Nacl 0.9% 1000 Ml IV 100 mls/hr DIRECT [facility] Administration Insulin Human Lispro 0 unit 04/15/21 08:00 Insulin Lispro 100 Unit/Ml SUB-Q ACHS [facility] Protocol Miscellaneous Medication 25 cap 04/15/21 10:00 Lenalidomide [Revlimid] PO DAILY [facility] Ondansetron HCl 4 mg 04/14/21 20:06 Ondansetron 4 Mg/2 Ml Inj IV Q8H PRN Nausea And Vomiting Oxycodone/Acetaminophen 1 tab 04/14/21 20:06 04/15/21 06:11 Oxycodone /Acetaminophen 5-325mg Tab PO 1 tab Q6H PRN Administration Pain, Moderate (4-6) Pantoprazole Sodium 40 mg 04/15/21 10:00 Pantoprazole 40 Mg Tab PO QDAC RAFAEL Pravastatin Sodium 80 mg 04/15/21 22:00 Pravastatin 80 Mg Tab PO QHS RAFAEL Sodium Chloride 10 ml 04/14/21 22:00 04/14/21 22:43 Sodium Chloride 0.9% 10 Ml Flush Syringe IV 10 ml BID RAFAEL Administration Sodium Chloride 10 ml 04/14/21 20:06 Sodium Chloride 0.9% 10 Ml Flush Syringe IV PRN PRN LINE FLUSH
--- NOTE | 2021-04-15 09:35 | Progress Note ---
Assessment and Plan Patient with a history of significant peripheral vascular disease with noncompliance with her medications in the outpatient setting. Had a lengthy discussion with the patient regarding the need to take her outpatient medications including Pletal as well as Neurontin. Would consider increasing her Neurontin dose. Additionally, the patient has a strong family history of peripheral vascular disease including both brothers one of whom has lost a toe secondary to amputation. Given her strong family history, the patient will need a cardiac evaluation however that does need to occur during her hospitalization but would be recommended in the outpatient setting. The patient will also need a carotid duplex in the outpatient setting given her increased stroke risk. I the patient has been restarted on her home medications which she was not taking in the outpatient setting. Would suspect that now that she is retaking her medications a significant component of the relief of her symptoms as a result of appropriate medical therapy. Would not plan any interventions at this time. If the patient continues to improve/remains at her baseline today she could be discharged home tomorrow. Subjective Date of service: 04/15/21 Principal diagnosis: Peripheral vascular disease bilateral lower extremities right greater than Interval history: Patient with a history of significant peripheral vascular disease right greater than left who previously is undergone multiple interventions on the right with revascularization procedures. The patient is noncompliant with her discharge medications and resulting recurrent stenoses which have resulted in a recurrent presentation with rest pain/threatened limb predominantly on the right. Patient underwent an ultrasound which demonstrates no evidence of DVT. She underwent a CTA of the abdomen and pelvis which demonstrates multilevel stenoses and occlusion on the right as well as the left. On examination this morning, I the patient states that her foot feels better. She had pain last night that woke her up from sleep in her foot consistent with neurogenic component of her pain. The patient has been ambulating independently to the restroom. On examination her foot does not appear to be threatened. It is mildly cooler than the contralateral foot. Pulses are nonpalpable in either foot. Objective - Constitutional Vitals: Vital Signs - 12hr 04/14/21 04/14/21 04/14/21 21:50 22:00 22:19 Temperature 97.4 F L Pulse Rate 57 L Respiratory 18 16 Rate Blood Pressure 154/67 145/61 O2 Sat by Pulse 99 100 100 Oximetry 04/15/21 05:00 Temperature 97.7 F Pulse Rate 49 L Respiratory 16 Rate Blood Pressure 125/54 O2 Sat by Pulse 96 Oximetry General appearance: Present: no acute distress - EENT Eyes: EOM intact ENT: hearing intact - Neck Neck: supple, normal ROM - Respiratory Respiratory effort: normal Extremities: abnormal (Per HPI) - Gastrointestinal General gastrointestinal: Present: deferred Rectal Exam: deferred - Genitourinary Female genitourinary: deferred - Psychiatric Psychiatric: cooperative - Labs CBC & Chem 7: 04/15/21 04:48 04/15/21 04:48 Labs: Abnormal lab results 04/14/21 04/14/21 04/15/21 Range/Units 15:01 21:34 04:48 WBC 2.8 L 2.3 L (4.5-11.0) K/mm3 RBC 3.54 L (3.65-5.03) M/mm3 RDW 17.7 H 17.6 H (13.2-15.2) % Plt Count 138 L (140-440) K/mm3 Lymph % (Auto) 44.7 H (13.4-35.0) % Graham % (Auto) 12.3 H (0.0-7.3) % Eos % (Auto) 6.9 H (0.0-4.3) % Seg Neutrophils % 35.0 L (40.0-70.0) % Seg Neuts % (Manual) 33.0 L (40.0-70.0) % Monocytes % (Manual) 14.0 H (0.0-7.3) % Eosinophils % (Manual) 18.0 H (0.0-4.3) % Seg Neutrophils # 1.0 L (1.8-7.7) K/mm3 Seg Neutrophils # Man 0.8 L (1.8-7.7) K/mm3 Lymphocytes # (Manual) 0.8 L (1.2-5.4) K/mm3 Heparin Anti-Xa Level (0.3-0.7) U.I./ml Chloride (98-107) mmol/L Glucose (65-100) mg/dL POC Glucose 129 H (70-105) mg/dL Calcium (8.4-10.2) mg/dL Total Protein (6.3-8.2) g/dL Albumin (3.9-5) g/dL 04/15/21 04/15/21 04/15/21 Range/Units 04:48 04:48 07:42 WBC (4.5-11.0) K/mm3 RBC (3.65-5.03) M/mm3 RDW (13.2-15.2) % Plt Count (140-440) K/mm3 Lymph % (Auto) (13.4-35.0) % Graham % (Auto) (0.0-7.3) % Eos % (Auto) (0.0-4.3) % Seg Neutrophils % (40.0-70.0) % Seg Neuts % (Manual) (40.0-70.0) % Monocytes % (Manual) (0.0-7.3) % Eosinophils % (Manual) (0.0-4.3) % Seg Neutrophils # (1.8-7.7) K/mm3 Seg Neutrophils # Man (1.8-7.7) K/mm3 Lymphocytes # (Manual) (1.2-5.4) K/mm3 Heparin Anti-Xa Level 0.72 H (0.3-0.7) U.I./ml Chloride 108.5 H (98-107) mmol/L Glucose 112 H (65-100) mg/dL POC Glucose 169 H (70-105) mg/dL Calcium 8.3 L (8.4-10.2) mg/dL Total Protein 5.3 L D (6.3-8.2) g/dL Albumin 3.3 L (3.9-5) g/dL Medications & Allergies - Medications Allergies/Adverse Reactions: Allergies No Known Allergies Allergy (Unverified 04/14/21 13:46) Home Medications: Home Medications Medication Instructions Recorded Confirmed Last Taken Type Apixaban [Eliquis] 2.5 mg PO BID #180 tablet 07/26/20 Unknown Rx Aspirin EC [Halfprin EC] 81 mg PO QDAY #90 tablet. 07/26/20 Unknown Rx Gabapentin 300 mg PO Q8HR 07/26/20 07/26/20 07/25/20 History 3 tabs Lenalidomide [Revlimid] 25 cap PO DAILY 07/26/20 07/26/20 07/25/20 History 25 mg Pantoprazole [Protonix] 40 mg PO QDAY #90 tablet 07/26/20 Unknown Rx Semaglutide [Rybelsus] 7 mg PO DAILY 07/26/20 07/26/20 07/25/20 History 7 mg Simvastatin 40 mg PO DAILY 07/26/20 07/26/20 07/25/20 History 40 mg cilostazoL [Pletal] 100 mg PO BID #180 tablet 07/26/20 Unknown Rx Active Medications: Generic Name Dose Route Start Last Admin Trade Name Freq PRN Reason Stop Dose Admin Acetaminophen 650 mg 04/14/21 20:06 Acetaminophen 325 Mg Tab PO Q4H PRN Pain MILD(1-3)/Fever >100.5/MTZ Aspirin 81 mg 04/15/21 10:00 Aspirin Ec 81 Mg Tab PO QDAY COUNTS INCLUDE 234 BEDS AT THE [facility] Cilostazol 100 mg 04/15/21 10:00 Cilostazol 100 Mg Tab PO BID COUNTS INCLUDE 234 BEDS AT THE [facility] Gabapentin 300 mg 04/15/21 08:00 Gabapentin 300 Mg Cap PO Q8HR COUNTS INCLUDE 234 BEDS AT THE [facility] Heparin Sodium/Sodium Chloride 25,000 unit in 500 mls @ 21 mls/hr 04/14/21 17:00 04/15/21 06:09 Heparin/ 0.45% Nacl-25,000 Unit/500 Ml IV 1,000 units/hr TITR RAFAEL 20 mls/hr Titration Protocol 1,050 UNITS/HR Sodium Chloride 1,000 mls @ 100 mls/hr 04/14/21 20:15 04/14/21 22:43 Nacl 0.9% 1000 Ml IV 100 mls/hr DIRECT COUNTS INCLUDE 234 BEDS AT THE [facility] Administration Insulin Human Lispro 0 unit 04/15/21 08:00 Insulin Lispro 100 Unit/Ml SUB-Q ACHS COUNTS INCLUDE 234 BEDS AT THE [facility] Protocol Miscellaneous Medication 25 cap 04/15/21 10:00 Lenalidomide [Revlimid] PO DAILY COUNTS INCLUDE 234 BEDS AT THE [facility] Ondansetron HCl 4 mg 04/14/21 20:06 Ondansetron 4 Mg/2 Ml Inj IV Q8H PRN Nausea And Vomiting Oxycodone/Acetaminophen 1 tab 04/14/21 20:06 04/15/21 06:11 Oxycodone /Acetaminophen 5-325mg Tab PO 1 tab Q6H PRN Administration Pain, Moderate (4-6) Pantoprazole Sodium 40 mg 04/15/21 10:00 Pantoprazole 40 Mg Tab PO QDAC COUNTS INCLUDE 234 BEDS AT THE [facility] Pravastatin Sodium 80 mg 04/15/21 22:00 Pravastatin 80 Mg Tab PO QHS COUNTS INCLUDE 234 BEDS AT THE [facility] Sodium Chloride 10 ml 04/14/21 22:00 04/14/21 22:43 Sodium Chloride 0.9% 10 Ml Flush Syringe IV 10 ml BID RAFAEL Administration Sodium Chloride 10 ml 04/14/21 20:06 Sodium Chloride 0.9% 10 Ml Flush Syringe IV PRN PRN LINE FLUSH
[2021-04-15] MEDS: GABAPENTIN 300 MG CAP PO SCH ×3 (09:50→21:17)
[2021-04-15] MEDS: ASPIRIN EC 81 MG TAB PO SCH (09:51)
[2021-04-15] MEDS: CILOSTAZOL 100 MG TAB PO SCH ×2 (09:52→21:18)
[2021-04-15] MEDS: PANTOPRAZOLE 40 MG TAB PO SCH (09:53)
[2021-04-15] MEDS ORDERED: LENALIDOMIDE 25 MG PO SCH (10:00)
[2021-04-15] MEDS ORDERED: NON-FORMULARY EACH (Simvastatin [Simvastatin] 40 MG Tablet) PO SCH (10:00)
[2021-04-15] MEDS: INSULIN LISPRO 100 UNIT/ML SUB-Q SCH ×4 (10:01→21:32)
[2021-04-15] MEDS: HEPARIN/ 0.45% NACL DRIP 25,000 UNIT/500 ML BAG IV SCH ×2 (17:57→21:29)
[2021-04-15] MEDS ORDERED: PRAVASTATIN 80 MG TAB PO SCH (22:00)
[2021-04-16 05:40] VITALS: BP 121/56
[2021-04-16] MEDS: GABAPENTIN 300 MG CAP PO SCH (05:46)
[2021-04-16 07:09] LABS: Hematocrit 34.3 % (30.3-42.9); Mean Corpuscular HGB Conc 32 % (30-34); Mean Corpuscular Volume 97 fl (79-97); Platelet Count 150 K/mm3 (140-440); Red Blood Count 3.55 M/mm3 (3.65-5.03); Red Cell Distribution Width 17.6 % (13.2-15.2)
[2021-04-16 07:20] LABS: INR 0.98 (0.87-1.13)
[2021-04-16 07:21] LABS: Partial Thromboplastin Time 49.6 Sec. (24.2-36.6)
[2021-04-16 07:32] LABS: BUN/Creatinine Ratio 10; Blood Urea Nitrogen 10 mg/dL (7-17); Calcium 8.3 mg/dL (8.4-10.2); Hemolysis Index 3
--- NOTE | 2021-04-16 08:41 | Discharge Summary ---
Providers - Providers Date of Admission: 04/14/21 20:06 Date of discharge: 04/16/21 Attending physician: DIONICIO RENDON MD Vascular Surgery Primary care physician: [employer] Hospitalization Reason for admission: Occlusion of right SFA; right lower extremity ischemia Condition: Stable Pertinent studies: Reviewed. Procedures: None. Hospital course: Patient is a 76-year-old female past medical history of GERD and peripheral vascular disease who has undergone multiple repeat revascularization procedures on her right lower extremity with her most recent being on 07/27/2019 who presented with worsening bilateral lower extremity pain (right >left) over the last week. The patient admits to not being compliant with her anticoagulation (except her Eliquis) and not taking her medications as prescribed. She presented to an outside physician and underwent an arterial duplex that demonstrated occlusion of the distal SFA with preserved posterior tibial flow. On presentation she was hemodynamically stable. Vascular surgery was consulted for further management. The patient underwent multiple imaging (CT angio abdominal/femoral aorta with runoff) on 04/14/2021 revealing ight popliteal artery is patent and supplied by collaterals at its origin with subsequent occlusion along the middle third of its course without distal reconstitution of flow, occluded right anterior tibial artery, occluded right tibioperoneal trunk, occluded right posterior tibial artery at its origin with reconstitution of flow via collaterals along the proximal/middle third of the leg, mostly occluded right peroneal artery with reconstitution of flow just above the ankle via collaterals, mostly occluded left peroneal artery with reconstitution of flow via collaterals just above the ankle. The patient was initiated on heparin drip. Vascular surgery recommended the patient restart taking all of her prescribed meds in order to achieve symptomatic relief. There will not be any surgical intervention at this time. Vascular surgery recommends the patient restart simvastatin 40 mg daily, aspirin 81 mg daily, apixaban 2.5 mg twice daily, and cilostazol 100 mg twice daily. Patient expresses understanding. Patient is medically cleared for discharge. 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 Time spent for discharge: 45 min Core Measure Documentation - Palliative Care Palliative Care/ Comfort Measures: Not Applicable - Core Measures Any of the following diagnoses?: none Exam - Constitutional Vitals: Temp Pulse Resp BP Pulse Ox 97.9 F 55 L 16 121/56 99 04/16/21 05:22 04/16/21 05:22 04/16/21 05:22 04/16/21 05:04/16/21 05:22 General appearance: Present: no acute distress, well-nourished - EENT Eyes: Present: PERRL, EOM intact ENT: hearing intact, clear oral mucosa, dentition normal - Neck Neck: Present: supple, normal ROM - Respiratory Respiratory effort: normal Respiratory: bilateral: CTA - Cardiovascular Rhythm: regular Heart Sounds: Present: S1 & S2 - Extremities Extremities: pulses intact, pulses symmetrical, No edema, Full ROM Extremity abnormal: cold (Right foot is slightly cooler than the left foot), tenderness (Tenderness at rest of bilateral lower extremity from knee downward), other Peripheral Pulses: within normal limits - Abdominal General gastrointestinal: Present: soft, non-tender, non-distended, normal bowel sounds Female genitourinary: Present: deferred - Rectal Rectal Exam: deferred - Integumentary Integumentary: Present: clear, warm, erythema - Musculoskeletal Musculoskeletal: strength equal bilaterally - Psychiatric Psychiatric: appropriate mood/affect, memory intact, cooperative - Neurologic Neurologic: CNII-XII intact, moves all extremities - Allied Health Allied health notes reviewed: nursing Plan Activity: no restrictions Diet: low fat, low salt Additional Instructions: Patient is a 76-year-old female past medical history of GERD and peripheral vascular disease who has undergone multiple repeat revascularization procedures on her right lower extremity with her most recent being on 07/27/2019 who presented with worsening bilateral lower extremity pain (right >left) over the last week. The patient admits to not being compliant with her anticoagulation (except her Eliquis) and not taking her medications as prescribed. She presented to an outside physician and underwent an arterial duplex that demonstrated occlusion of the distal SFA with preserved posterior tibial flow. On presentation she was hemodynamically stable. Vascular surgery was consulted for further management. The patient underwent multiple imaging (CT angio abdominal/femoral aorta with runoff) on 04/14/2021 revealing ight popliteal artery is patent and supplied by collaterals at its origin with subsequent occlusion along the middle third of its course without distal reconstitution of flow, occluded right anterior tibial artery, occluded right tibioperoneal trunk, occluded right posterior tibial artery at its origin with reconstitution of flow via collaterals along the proximal/middle third of the leg, mostly occluded right peroneal artery with reconstitution of flow just above the ankle via collaterals, mostly occluded left peroneal artery with reconstitution of flow via collaterals just above the ankle. The patient was initiated on heparin drip. Vascular surgery recommended the patient restart taking all of her prescribed meds in order to achieve symptomatic relief. There will not be any surgical in tervention at this time. Vascular surgery recommends the patient restart simvastatin 40 mg daily, aspirin 81 mg daily, apixaban 2.5 mg twice daily, and cilostazol 100 mg twice daily. Patient expresses understanding. Patient is medically cleared for discharge. Care Plan Goals: Patient is medically cleared for discharge. Assessment: Patient is a 76-year-old female past medical history of GERD and peripheral vascular disease who has undergone multiple repeat revascularization procedures on her right lower extremity with her most recent being on 07/27/2019 who presented with worsening bilateral lower extremity pain (right >left) over the last week. The patient admits to not being compliant with her anticoagulation (except her Eliquis) and not taking her medications as prescribed. She presented to an outside physician and underwent an arterial duplex that demonstrated occlusion of the distal SFA with preserved posterior tibial flow. On present ation she was hemodynamically stable. Vascular surgery was consulted for further management. The patient underwent multiple imaging (CT angio abdominal/femoral aorta with runoff) on 04/14/2021 revealing ight popliteal artery is patent and supplied by collaterals at its origin with subsequent occlusion along the middle third of its course without distal reconstitution of flow, occluded right anterior tibial artery, occluded right tibioperoneal trunk, occluded right posterior tibial artery at its origin with reconstitution of flow via collaterals along the proximal/middle third of the leg, mostly occluded right peroneal artery with reconstitution of flow just above the ankle via collaterals, mostly occluded left peroneal artery with reconstitution of flow via collaterals just above the ankle. The patient was initiated on heparin drip. Vascular surgery recommended the patient restart taking all of her prescribed meds in order to achieve symptomatic relief. There will not be any surgical in tervention at this time. Vascular surgery recommends the patient restart simvastatin 40 mg daily, aspirin 81 mg daily, apixaban 2.5 mg twice daily, and cilostazol 100 mg twice daily. Patient expresses understanding. Patient is medically cleared for discharge. Follow up with: PRIMARY CARE, [Primary Care Provider] - 3-5 Days
[2021-04-16] MEDS: PANTOPRAZOLE 40 MG TAB PO SCH (09:19)
[2021-04-16] MEDS: CILOSTAZOL 100 MG TAB PO SCH (09:19)
--- NOTE | 2021-04-16 09:24 | Progress Note ---
Assessment and Plan Patient with history of severe peripheral vascular disease and medical noncompliance. Counseled the patient that she would need to take all her medications on discharge and that it may be beneficial to get a medication organizer so that she does not forget doses. She has decided to now switch back and follow-up with Dr. Arita. Our office will reach out to her to schedule an appointment in 1 to 2 weeks. Okay to discharge from a vascular standpoint. Subjective Date of service: 04/16/21 Principal diagnosis: Peripheral vascular disease bilateral lower extremities right greater than Interval history: Patient seen and examined. Patient states her foot feels better today. Mild calf cramping with ambulation consistent with claudication which is consistent with her significant atherosclerotic disease. Objective - Constitutional Vitals: Vital Signs - 12hr 04/15/21 04/15/21 04/16/21 21:43 22:00 05:22 Temperature 97.4 F L 97.9 F Pulse Rate 59 L 55 L Respiratory 12 16 Rate Blood Pressure 119/59 121/56 O2 Sat by Pulse 99 99 99 Oximetry General appearance: Present: no acute distress - EENT Eyes: EOM intact ENT: hearing intact - Neck Neck: normal ROM - Respiratory Respiratory effort: normal Extremities: abnormal (Right foot with increased warmth from prior, motor and sensation intact) - Genitourinary Female genitourinary: deferred - Psychiatric Psychiatric: cooperative - Labs CBC & Chem 7: 04/16/21 06:21 04/16/21 06:21 Labs: Abnormal lab results 04/15/21 04/15/21 04/15/21 Range/Units 11:02 14:52 16:05 WBC (4.5-11.0) K/mm3 RBC (3.65-5.03) M/mm3 RDW (13.2-15.2) % APTT (24.2-36.6) Sec. Heparin Anti-Xa Level 0.85 H (0.3-0.7) U.I./ml Potassium (3.6-5.0) mmol/L Chloride (98-107) mmol/L Glucose (65-100) mg/dL POC Glucose 129 H 116 H (70-105) mg/dL Calcium (8.4-10.2) mg/dL 04/15/21 04/16/21 04/16/21 Range/Units 23:15 06:21 06:21 WBC 2.3 L (4.5-11.0) K/mm3 RBC 3.55 L (3.65-5.03) M/mm3 RDW 17.6 H (13.2-15.2) % APTT 49.6 H (24.2-36.6) Sec. Heparin Anti-Xa Level 1.32 H 0.80 H (0.3-0.7) U.I./ml Potassium (3.6-5.0) mmol/L Chloride (98-107) mmol/L Glucose (65-100) mg/dL POC Glucose (70-105) mg/dL Calcium (8.4-10.2) mg/dL 04/16/21 Range/Units 06:21 WBC (4.5-11.0) K/mm3 RBC (3.65-5.03) M/mm3 RDW (13.2-15.2) % APTT (24.2-36.6) Sec. Heparin Anti-Xa Level (0.3-0.7) U.I./ml Potassium 3.5 L (3.6-5.0) mmol/L Chloride 107.4 H (98-107) mmol/L Glucose 121 H (65-100) mg/dL POC Glucose (70-105) mg/dL Calcium 8.3 L (8.4-10.2) mg/dL Medications & Allergies - Medications Allergies/Adverse Reactions: Allergies No Known Allergies Allergy (Unverified 04/14/21 13:46) Home Medications: Home Medications Medication Instructions Recorded Confirmed Last Taken Type Apixaban [Eliquis] 2.5 mg PO BID #180 tablet 07/26/20 04/16/21 2 Days Ago Rx ~04/14/21 Aspirin EC [Halfprin EC] 81 mg PO QDAY #90 tablet. 07/26/20 04/16/21 2 Days Ago Rx ~04/14/21 Gabapentin 300 mg PO Q8HR 07/26/20 04/16/21 2 Days Ago History ~04/14/21 Lenalidomide [Revlimid] 25 cap PO DAILY 07/26/20 04/16/21 2 Days Ago History ~04/14/21 Pantoprazole [Protonix TAB] 40 mg PO QDAY #90 tablet 07/26/20 04/16/21 Unknown Rx Semaglutide [Rybelsus] 7 mg PO DAILY 07/26/20 04/16/21 2 Days Ago History ~04/14/21 Simvastatin 40 mg PO DAILY 07/26/20 04/16/21 2 Days Ago History ~04/14/21 cilostazoL [Pletal] 100 mg PO BID #180 tablet 07/26/20 04/16/21 2 Days Ago Rx ~04/14/21 oxyCODONE /ACETAMINOPHEN [Percocet 1 tab PO Q6HR PRN #20 tablet 04/16/21 Unknown Rx 5/325] Active Medications: Generic Name Dose Route Start Last Admin Trade Name Freq PRN Reason Stop Dose Admin Acetaminophen 650 mg 04/14/21 20:06 Acetaminophen 325 Mg Tab PO Q4H PRN Pain MILD(1-3)/Fever >100.5/MTZ Aspirin 81 mg 04/15/21 10:00 04/15/21 09:51 Aspirin Ec 81 Mg Tab PO 81 mg QDAY RAFAEL Administration Cilostazol 100 mg 04/15/21 10:00 04/16/21 09:19 Cilostazol 100 Mg Tab PO 100 mg BID RAFAEL Administration Gabapentin 300 mg 04/15/21 08:00 04/16/21 05:46 Gabapentin 300 Mg Cap PO 300 mg Q8HR RAFAEL Administration Heparin Sodium/Sodium Chloride 25,000 unit in 500 mls @ 21 mls/hr 04/14/21 17:00 04/16/21 02:04 Heparin/ 0.45% Nacl-25,000 Unit/500 Ml IV 800 units/hr TITR RAFAEL 16 mls/hr Titration Protocol 1,050 UNITS/HR Sodium Chloride 1,000 mls @ 100 mls/hr 04/14/21 20:15 04/14/21 22:43 Nacl 0.9% 1000 Ml IV 100 mls/hr DIRECT RAFAEL Administration Insulin Human Lispro 0 unit 04/15/21 08:00 04/15/21 21:32 Insulin Lispro 100 Unit/Ml SUB-Q Not Given ACHS RAFAEL Protocol Miscellaneous Medication 25 cap 04/15/21 10:00 Lenalidomide [Revlimid] PO DAILY RAFAEL Ondansetron HCl 4 mg 04/14/21 20:06 Ondansetron 4 Mg/2 Ml Inj IV Q8H PRN Nausea And Vomiting Oxycodone/Acetaminophen 1 tab 04/14/21 20:06 04/15/21 06:11 Oxycodone /Acetaminophen 5-325mg Tab PO 1 tab Q6H PRN Administration Pain, Moderate (4-6) Pantoprazole Sodium 40 mg 04/15/21 10:00 04/16/21 09:19 Pantoprazole 40 Mg Tab PO 40 mg QDAC RAFAEL Administration Pravastatin Sodium 80 mg 04/15/21 22:00 04/15/21 21:17 Pravastatin 80 Mg Tab PO 80 mg QHS RAFAEL Administration Sodium Chloride 10 ml 04/14/21 22:00 04/15/21 21:20 Sodium Chloride 0.9% 10 Ml Flush Syringe IV 10 ml BID RAFAEL Administration Sodium Chloride 10 ml 04/14/21 20:06 Sodium Chloride 0.9% 10 Ml Flush Syringe IV PRN PRN LINE FLUSH
[2021-04-16] MEDS: oxyCODONE /ACETAMINOPHEN 5-325MG TAB PO PRN (10:47)
[2021-04-16] MEDS: INSULIN LISPRO 100 UNIT/ML SUB-Q SCH (11:02)
[2021-04-16] MEDS: ASPIRIN EC 81 MG TAB PO SCH (11:04)
[2021-04-16 11:06] LABS: Anisocytosis 1+; Macrocytosis Few; Platelet Estimate Consistent w Auto; Total Cells Counted 100
--- NOTE | 2021-04-17 07:04 | Vascular Lab Report ---
DUPLEX DOPPLER LOWER EXTREMITY VEINS, RIGHT INDICATION / CLINICAL INFORMATION: right leg swelling. TECHNIQUE: Duplex doppler imaging was performed through the veins of the right lower extremity using venous comp ression and other maneuvers. COMPARISON: None available. FINDINGS: RIGHT COMMON FEMORAL VEIN: Negative. RIGHT FEMORAL VEIN: Negative. RIGHT POPLITEAL VEIN: Negative. RIGHT CALF VEINS: Negative. ADDITIONAL FINDINGS: None. IMPRESSION: 1. No sonographic evidence for DVT in the right lower extremity. Signer Name: Daniel Yee MD Signed: 04/17/2021 7:00 AM Workstation Name: [id number]
== END 2021-04-16 12:20 | disposition home or self-care (01) | DRG 301 ==
LOC: ED 13:32 → 3A 20:06
PROVIDERS: ADMIT Internal Medicine; ATTEND Student in an Organized Health Care Education/Training Program
DX: E11.51 Type 2 diabetes mellitus with diabetic peripheral angiopathy without gangrene (principal); I77.1 Stricture of artery; I99.8 Other disorder of circulatory system; E11.42 Type 2 diabetes mellitus with diabetic polyneuropathy; E78.2 Mixed hyperlipidemia; Z91.19 Patient's noncompliance with other medical treatment and regimen; Z79.82 Long term (current) use of aspirin
CPT/HCPCS: 36415; 75635; 80048; 80053; 82962; 85007; 85025; 85520; 85610; 85730; 86140; G0378; J3490; Q0162; J1644; J7030; Q9967